=== PATIENT | male | born 1995 | race Caucasian/White ===

== ENCOUNTER 2016-07-21 11:41 | Emergency (ER) | payer OTHER ==
[~2016-07-21] VITALS: Ht 182.9 cm; Wt 68.7 kg
[~2016-07-21 11:41] MED LIST: DEXT1LIQ36 PO; PENICILLIN PO
[2016-07-21 11:42] VITALS: TEMP 36.6; Ht 182.9 cm; Wt 68.7 kg
[2016-07-21] MEDS ORDERED: KETOROLAC TROMETHAMINE 30 MG/ML VIAL IV STA (12:11)
[2016-07-21] MEDS ORDERED: DEXAMETHASONE SOD INJ 10 MG/ML VIAL IV ONE (12:15)
[2016-07-21] MEDS ORDERED: ACETAMINOPHEN IV 100 ML IV ONE (12:15)
[2016-07-21] MEDS ORDERED: SODIUM CHLORIDE 0.9% 1000ML 1,000 ML IV ONE (12:15)
[2016-07-21 12:34] LABS: HEMATOCRIT 43.1 % (42-52); MEAN CELL VOLUME 88.5 fL (80-100); MEAN CORPUSCULAR HEMOGLOBIN 30.6 pg (25-34); MEAN CORPUSCULAR HGB CONC 34.6 g/dl (32-36); MEAN PLATELET VOLUME 11.5 fL (7.4-10.4); PLATELET COUNT 110 K/uL (130-400); RED BLOOD COUNT 4.87 M/uL (4.7-6.1); WHITE BLOOD COUNT 16.28 K/uL (4.8-10.8)
[2016-07-21 12:47] LABS: BUN/CREATININE RATIO 9.1 (10-20); CALCIUM 8.8 mg/dl (8.5-10.1); CREATININE 1.2 mg/dl (0.60-1.40); POTASSIUM 3.6 mmol/L (3.5-5.1)
[2016-07-21 12:50] LABS: ALB/GLOB RATIO 0.9 (0.9-2)
[2016-07-21 12:58] LABS: COMPLETE YES; LYMPH ABS # 1.14 K/uL (1.2-3.4); NEUTROPHILS % 42.6 %; VARIANT LYM ABS # 7.51 K/uL; VARIANT LYMPHOCYTE % 46.1 %
[2016-07-21] MEDS ORDERED: OXYC1TAB3 PO (13:44)
[2016-07-21 14:29] VITALS: BP 116/56; PULSE 79; O2SAT 97
--- NOTE | 2016-07-21 16:36 | EMERGENCY ROOM VISIT NOTE ---
History First contact with patient: 11:51 Chief Complaint: ILLNESS Stated Complaint: NOT EATING/DRINKING, SORETHROAT DX: MONO X 2 DAYS History of Present Illness The patient is a 20 year old male who presents to the Emergency Room with complaints of sore throat symptoms over the past week. The patient states that he was diagnosed with infectious mononucleosis at [facility] 2 days ago. He states that he had blood work and a strep test that was reportedly negative. The patient states his throat pain is making it difficult for him to eat or drink. The patient has not had severe fever or chills. No chest pain, chest tightness, shortness of breath, or abdominal pain. He spoke to his parents today, who recommended he come to the ER for evaluation. The patient is considered otherwise usually healthy and is not taking medication on a regular basis. Review of Systems More than 10 systems were reviewed and otherwise negative with the exception of history of present illness. Past Medical/Surgical History Medical Problems: (1) Asthma (2) Vasovagal syncope Family History Cancer FH: HTN (hypertension) Social History Smoking Status: Never Smoker Housing Status: lives with roommate Occupation Status: [employer] student Current/Historical Medications Scheduled Oxycodone Immediate Rel Tab (Roxicodone Ir), 5 MG PO Q6 Allergies Coded Allergies: No Known Allergies (Unverified , 03/13/16) Physical Exam Vital Signs Date Time Temp Pulse Resp B/P Pulse Ox O2 Delivery O2 Flow Rate FiO2 07/21/16 14:29 79 15 116/56 97 07/21/16 12:38 79 15 116/56 97 Room Air 07/21/16 11:42 36.6 90 20 103/63 96 Room Air Pain Rating (0-10): 0 Physical Exam VITALS: Vitals are noted on the nurse's note and reviewed by myself. Vital signs stable. GENERAL: Well-developed, well-nourished, white male, who is in no acute distress and resting comfortably. Patient is cooperative with the examination. HEAD: Normocephalic atraumatic. MOUTH: Mucous membranes moist. Tonsils are 1+ enlarged and erythematous. There is no evidence of peritonsillar abscess. No ludwigs. Mild x-rays are appreciated on the left tonsils. NECK: Supple without nuchal rigidity. No lymphadenopathy. No thyromegaly. Cervical spine is nontender. HEART: Regular rate and rhythm without murmurs gallops or rubs. LUNGS: Clear to auscultation bilaterally without wheezes, rales or rhonchi. No retractions or accessory muscle use. ABDOMEN: Positive normal bowel sounds x 4. Soft, nontender, without masses or organomegaly. No guarding or rebound tenderness. MUSCULOSKELETAL: No muscle atrophy, erythema, or edema noted. Full range of motion without joint tenderness in all extremities. Medical Decision & Procedures Laboratory Results 07/21/16 12:20 Red Blood Count 4.87, Mean Corpuscular Volume 88.5, Mean Corpuscular Hemoglobin 30.6, Mean Corpuscular Hemoglobin Concent 34.6, Mean Platelet Volume 11.5 07/21/16 12:20 Test 07/21/16 12:20 White Blood Count 16.28 K/uL (4.8-10.8) Red Blood Count 4.87 M/uL (4.7-6.1) Hemoglobin 14.9 g/dL (14.0-18.0) Hematocrit 43.1 % (42-52) Mean Corpuscular Volume 88.5 fL (80-100) Mean Corpuscular Hemoglobin 30.6 pg (25-34) Mean Corpuscular Hemoglobin Concent 34.6 g/dl (32-36) Platelet Count 110 K/uL (130-400) Mean Platelet Volume 11.5 fL (7.4-10.4) RDW Standard Deviation 40.2 fL (36.4-46.3) RDW Coefficient of Variation 12.6 % (11.5-14.5) Neutrophils % (Manual) 42.6 % Lymphocytes % (Manual) 7.0 % Variant Lymphocytes % (manual) 46.1 % Monocytes % (Manual) 4.3 % Neutrophils # (Manual) 6.94 K/uL (1.4-6.5) Total Absolute Neutrophils 6.94 K/uL (1.4-6.5) Lymphocytes # (Manual) 1.14 K/uL (1.2-3.4) Absolute Variant Lymphocytes 7.51 K/uL Total Absolute Lymphocytes 8.64 K/uL (1.2-3.4) Monocytes # (Manual) 0.70 K/uL (0.11-0.59) Red Blood Cell Morphology Unremarkable Anion Gap 7.0 mmol/L (3-11) Est Creatinine Clear Calc Drug Dose 96.2 ml/min Estimated GFR () 101.0 Estimated GFR (Non- 87.1 BUN/Creatinine Ratio 9.1 (10-20) Calcium Level 8.8 mg/dl (8.5-10.1) Total Bilirubin 0.6 mg/dl (0.2-1) Aspartate Amino Transf (AST/SGOT) 54 U/L (15-37) Alanine Aminotransferase (ALT/SGPT) 86 U/L (12-78) Alkaline Phosphatase 25 U/L (45-117) Total Protein 7.6 gm/dl (6.4-8.2) Albumin 3.7 gm/dl (3.4-5.0) Globulin 3.9 gm/dl (2.5-4.0) Albumin/Globulin Ratio 0.9 (0.9-2) Medications Administered Medications (Trade) Dose Ordered Sig/Pooja Route Start Time Stop Time Status Last Admin Dose Admin Sodium Chloride (Nss 1000ml) 1,000 ml @ 999 mls/hr Q1H1M ONCE IV 07/21/16 12:15 07/21/16 13:15 DC 07/21/16 12:32 999 MLS/HR Ketorolac Tromethamine (Toradol Inj) 30 mg NOW STAT IV 07/21/16 12:11 07/21/16 12:13 DC 07/21/16 12:30 30 MG Dexamethasone Sodium Phosphate 10 mg 10 mg NOW ONCE IV 07/21/16 12:15 07/21/16 12:16 DC 07/21/16 12:29 10 MG Acetaminophen (Ofirmev Iv) 100 ml @ 400 mls/hr NOW ONCE IV 07/21/16 12:15 07/21/16 12:29 DC 07/21/16 12:31 400 MLS/HR ED Course Physical exam and history were performed. Nursing notes and EMR were reviewed. Patient appears to have a sore throat likely from infectious mononucleosis. He is not eating or drinking well over the past 2 days due to his symptoms. He does not have a peritonsillar abscess on examination. IV access was established and labs were obtained. The patient was hydrated and medicated as above. The patient's blood work does show an elevated white blood cell count of 16,000 which was expected. He also has a slight increase in his transaminases, again likely consistent with mono. The patient does not have other significant findings. He was monitored for greater than 2 hours here in the department and had considerable improvement of his symptoms after the above medications. Overall the patient appears well for discharge home. He will be given instructions to use [id number] analgesics and encourage fluids. I will give him a short course of pain medication. The patient was invited back to the emergency department anytime with new, worsening, or concerning symptoms. He voiced understanding of this plan and rated his discomfort 2/10 at the time of departure. The chart was completed utilizing [employer] Speech Voice Recognition Software. Grammatical errors, random word insertions, pronoun errors, and incomplete sentences are an occasional consequence of this system due to software limitations, ambient noise, and hardware issues. Any formal questions or concerns about the content, text, or information contained within the body of this dictation should be directly addressed to the provider for clarification. . Medical Decision Differential diagnosis: Etiologies such as viral syndrome, tonsillitis, streptococcal pharyngitis, mononucleosis, peritonsillar abscess, retropharyngeal abscess, otitis, pneumonia , influenza, as well as others were entertained. Impression Primary Impression: Infectious mononucleosis with hepatitis Departure Information Dispostion Home / Self-Care Condition GOOD Prescriptions Oxycodone Immediate Rel Tab (ROXICODONE IR) 5 Mg Tab 5 MG PO Q6 for Pain, #10 TAB Prov: Surendra Rodrigues PA-C 07/21/16 Forms HOME CARE DOCUMENTATION FORM, IMPORTANT VISIT INFORMATION Patient Instructions My [facility] Additional Instructions You were seen and evaluated today on an emergency basis only. This is not a substitute for, or an effort to provide, complete comprehensive medical care. It is not possible to recognize and treat all injuries or illnesses in a single emergency department visit. For this reason it is recommended that you followup with [facility] next week for ongoing evaluation. You have mild irritation of the liver. This is likely from the [place] infection. Your liver enzymes will need rechecked by your primary care physician or [facility] in one or two weeks. Oxycodone (OxyIR) 5mg: Take ONE pill every SIX hours for breakthrough pain. Avoid alcohol, operating machinery or dangerous equipment, working on ladders or roofs, DRIVING, or situations where being under the influence may be dangerous. It is recommended to use an [id number] stool softener such as Colace, 100mg twice daily while taking this medication to avoid constipation. For baseline pain relief you may alternate ibuprofen and acetaminophen every 4 hours for pain control. Take 600 mg ibuprofen (Advil) and then 4 hours later take 1000 mg acetaminophen (Tylenol). Do not take more than 3000 mg acetaminophen in a single day. Drink plenty fluids and remain well hydrated. You are welcome to return to the emergency department anytime with new, worsening, or concerning symptoms.
== END 2016-07-21 14:31 | disposition home or self-care (01) ==
LOC: C.EDB 11:43 → C.EDA 14:31
DX: B27.90 Infectious mononucleosis, unspecified without complication (principal); K75.9 Inflammatory liver disease, unspecified; J45.909 Unspecified asthma, uncomplicated; Z80.9 Family history of malignant neoplasm, unspecified; Z82.49 Family history of ischemic heart disease and other diseases of the circulatory system

== ENCOUNTER 2016-07-22 23:38 | Emergency (ER) | payer OTHER ==
[~2016-07-22] VITALS: Ht 182.9 cm; Wt 68.6 kg
[~2016-07-22 23:38] MED LIST changes: +OXYC1TAB3 PO
[2016-07-22 23:45] VITALS: Ht 182.9 cm; Wt 68.6 kg
[2016-07-23 00:19] LABS: MEAN CELL VOLUME 88.6 fL (80-100); MEAN CORPUSCULAR HGB CONC 33.8 g/dl (32-36); MEAN PLATELET VOLUME 11.6 fL (7.4-10.4); PLATELET COUNT 125 K/uL (130-400); RED BLOOD COUNT 4.74 M/uL (4.7-6.1); WHITE BLOOD COUNT 18.11 K/uL (4.8-10.8)
[2016-07-23 00:37] LABS: BUN/CREATININE RATIO 7.1 (10-20); CALCIUM 8.7 mg/dl (8.5-10.1); CREATININE 1.3 mg/dl (0.60-1.40); POTASSIUM 3.5 mmol/L (3.5-5.1)
[2016-07-23] MEDS ORDERED: SODIUM CHLORIDE 0.9% 1000ML 2,000 ML IV STA (00:59)
[2016-07-23] MEDS ORDERED: KETOROLAC TROMETHAMINE 30 MG/ML VIAL IV STA (00:59)
[2016-07-23] MEDS ORDERED: ONDANSETRON INJ 2 MG/ML 2 ML VIAL IV STA (00:59)
[2016-07-23] MEDS ORDERED: MAGIC SWIZZLE PO ONE (01:00)
[2016-07-23] MEDS ORDERED: LIDOCAINE HCL 2% VISCOUS SOLN 1.25 ML, DiphenhydrAMINE HCL SYRUP 3.125 MG, ALUMINUM/MAG... MT STA ×4 (01:03)
[2016-07-23 01:16] LABS: BASO ABS # 0.16 K/uL (0-0.2); BASOPHIL % 0.9 % (0-2); COMPLETE YES; LYMPH ABS # 2.61 K/uL (1.2-3.4); LYMPHOCYTE % 14.4 %; NEUTROPHILS % 30.6 %; VARIANT LYMPHOCYTE % 54.1 %
[2016-07-23] MEDS ORDERED: MBXC PO (02:20)
[2016-07-23] MEDS ORDERED: METHYLPREDNISOLONE 125 MG VIAL IV STA (02:20)
[2016-07-23 02:37] VITALS: BP 105/42; PULSE 94; TEMP 37.8; O2SAT 96
--- NOTE | 2016-07-23 03:35 | EMERGENCY ROOM VISIT NOTE ---
History Report prepared by Radha: Zen Blandon Under the Supervision of: Dr. Eduar Varela D.O. First contact with patient: 23:49 Chief Complaint: FEVER Stated Complaint: MONO, FEVER, PASSING OUT History of Present Illness The patient is a 20 year old male who presents to the Emergency Room with complaints of persistent fever beginning yesterday. He notes he was diagnosed with mono at [facility] 3 days ago. His temperature have been around 102-103. He took 2 Tylenol tables about 10 hours ago which did not help, and has been taking Ibuprofen irregularly. The patient also reports passing out about 5 hours ago. He states he was in his room and felt hot. His legs began to buckle and he fell to the ground where he woke up. He notes this only occurred once. The patient admits to a history of vasovagal syncope, but notes that the episode was today was sudden and that his episodes with his vasovagal episodes are more gradual. He notes that he felt dizzy other times throughout the day and had to sit down. The patient admits to having a sore throat and pain with swallowing, muscle aches, ear discomfort, sinus congestions, and vomiting. He last vomited 4 hours ago. The patient denies having any coughing up blood, urinary symptoms, or swelling of his legs. He also denies any history of heart disease, but admits to a history of heart disease. He has not had any sick contact recently. Previous echo and Holter monitor for vasovagal syncope was an unremarkable workup. Source of History: patient Onset: yesterday Position: other (global) Symptom Intensity: 102-103 Quality: other (fever) Timing: other (persistent) Associated Symptoms: + LOC, + sorethroat, + vomiting, No urinary symptoms Note: Patient also admits to having ear discomfort, muscle aches, and pain with swallowing. Review of Systems See HPI for pertinent positives & negatives. A total of 10 systems reviewed and were otherwise negative. Past Medical & Surgical Medical Problems: (1) Asthma (2) Vasovagal syncope Family History Cancer FH: HTN (hypertension) Social History Smoking Status: Never Smoker Housing Status: lives with roommate Occupation Status: [employer] student Current/Historical Medications Scheduled Magic Swizzle (Magic Swizzle - SUCRALFA/ALUM/MAG/DIPHEN/LIDO), 3-4 TSP PO ACHS Oxycodone Immediate Rel Tab (Roxicodone Ir), 5 MG PO Q6 Allergies Coded Allergies: No Known Allergies (Unverified , 07/22/16) Physical Exam Vital Signs Date Time Temp Pulse Resp B/P Pulse Ox O2 Delivery O2 Flow Rate FiO2 07/23/16 02:37 37.8 94 18 105/42 96 07/23/16 02:09 37.8 94 18 105/42 96 Room Air 07/23/16 01:14 84 22 121/51 96 Room Air 07/23/16 00:20 93 07/22/16 23:45 38.0 88 18 105/47 95 Room Air Physical Exam GENERAL: Sitting up in bed, alert, well appearing, well nourished, no distress, non-toxic HEAD: Normocephalic/atraumatic EYE EXAM: normal conjunctiva, PERRL and EOM's intact OROPHARYNX: no exudate, no erythema, lips, buccal mucosa, and tongue normal and mucous membranes are moist NECK: supple, no nuchal rigidity, no adenopathy, no midline tenderness with FROM LUNGS: Clear to auscultation. Normal chest wall mechanics HEART: Tachycardic. ABDOMEN: abdomen soft, non-tender, normo-active bowel sounds, no masses, no rebound or guarding. BACK: Back is symmetrical on inspection and there is no deformity, no midline tenderness, no CVA tenderness. SKIN: no rashes and no bruising UPPER EXTREMITIES: upper extremities are grossly normal. LOWER EXTREMITIES: No pitting edema. NEURO EXAM: Normal sensorium, cranial nerves II-XII grossly intact, normal speech, no gross weakness of arms, no gross weakness of legs. Gross sensation intact. Medical Decision & Procedures ER Provider Diagnostic Interpretation: Radiology results as stated below per my review and the radiologist's interpretation: CHEST X-RAY per my review: Portable AP Upright One View No acute infiltrate or pneumothorax. Normal cardiac silhouette. Laboratory Results 07/22/16 23:55 Red Blood Count 4.74, Mean Corpuscular Volume 88.6, Mean Corpuscular Hemoglobin 30.0, Mean Corpuscular Hemoglobin Concent 33.8, Mean Platelet Volume 11.6 07/22/16 23:55 Test 07/22/16 23:55 White Blood Count 18.11 K/uL (4.8-10.8) Red Blood Count 4.74 M/uL (4.7-6.1) Hemoglobin 14.2 g/dL (14.0-18.0) Hematocrit 42.0 % (42-52) Mean Corpuscular Volume 88.6 fL (80-100) Mean Corpuscular Hemoglobin 30.0 pg (25-34) Mean Corpuscular Hemoglobin Concent 33.8 g/dl (32-36) Platelet Count 125 K/uL (130-400) Mean Platelet Volume 11.6 fL (7.4-10.4) RDW Standard Deviation 41.1 fL (36.4-46.3) RDW Coefficient of Variation 12.7 % (11.5-14.5) Nucleated RBC Absolute Count (auto) 0.07 K/uL (0-0) Neutrophils % (Manual) 30.6 % Lymphocytes % (Manual) 14.4 % Variant Lymphocytes % (manual) 54.1 % Basophils % (Manual) 0.9 % (0-2) Nucleated Red Blood Cells % 0.4 % Neutrophils # (Manual) 5.54 K/uL (1.4-6.5) Total Absolute Neutrophils 5.54 K/uL (1.4-6.5) Lymphocytes # (Manual) 2.61 K/uL (1.2-3.4) Absolute Variant Lymphocytes 9.80 K/uL Total Absolute Lymphocytes 12.41 K/uL (1.2-3.4) Basophils # (Manual) 0.16 K/uL (0-0.2) Anion Gap 8.0 mmol/L (3-11) Est Creatinine Clear Calc Drug Dose 88.7 ml/min Estimated GFR () 91.7 Estimated GFR (Non- 79.1 BUN/Creatinine Ratio 7.1 (10-20) Calcium Level 8.7 mg/dl (8.5-10.1) Total Bilirubin 0.5 mg/dl (0.2-1) Direct Bilirubin 0.1 mg/dl (0-0.2) Aspartate Amino Transf (AST/SGOT) 44 U/L (15-37) Alanine Aminotransferase (ALT/SGPT) 78 U/L (12-78) Alkaline Phosphatase 20 U/L (45-117) Total Protein 7.5 gm/dl (6.4-8.2) Albumin 3.6 gm/dl (3.4-5.0) Laboratory results per my review. Medications Administered Medications (Trade) Dose Ordered Sig/Pooja Route Start Time Stop Time Status Last Admin Dose Admin Sodium Chloride (Nss 1000ml) 2,000 ml @ 999 mls/hr Q2H1M STAT IV 07/23/16 00:59 07/23/16 02:59 DC 07/23/16 01:08 999 MLS/HR Ondansetron HCl (Zofran Inj) 4 mg NOW STAT IV 07/23/16 00:59 07/23/16 01:00 DC 07/23/16 01:08 4 MG Ketorolac Tromethamine (Toradol Inj) 30 mg NOW STAT IV 07/23/16 00:59 07/23/16 01:00 DC 07/23/16 01:09 30 MG Methylprednisolone Sodium Succinate (Solu-Medrol IV) 125 mg NOW STAT IV 07/23/16 02:20 07/23/16 02:21 DC 07/23/16 02:27 125 MG ECG Indication: other (fever) Rate (beats per minute): 78 Findings: no ectopy, other (normal axis, normal interval) ED Course ED COURSE: Vital signs were reviewed and showed tachycardic and febrile. The patients medical record was reviewed The above diagnostic studies were performed and reviewed. ED treatments and interventions as stated above. 2354: The patient was evaluated in room C7. A complete history and physical examination was performed. 0125: I updated the patient. 0135: I spoke with the patient's father on the phone to update him. 0220: Ordered Solu-Medrol IV 125 mg IV. 0230: Upon reevaluation, the patient is doing well.I discussed my findings with the patient and he understands and agrees with the treatment plan. Based on the patients age, coexisting illnesses, exam and lab findings the decision to treat as an outpatient was made. The patient remained stable while under my care. The patient appeared well at the time of discharge. Medical Decision Differential diagnosis: Etiologies such as viral syndrome, otitis, pharyngitis, pneumonia, influenza, meningitis, urinary tract infection, sepsis, bacteremia, as well as others were entertained. Patient is a 20-year-old male who presents the ER with a diagnosis of mono [facility] for fevers associated with a severe sore throat and syncope. This gentleman has extensive workup for vasovagal syncope which includes a Holter monitor and echo in the past year which were unremarkable. Patient notes that he became diaphoretic warm and very lightheaded. He then passed out. I do favor this is likely consistent with vasovagal syncope likely exacerbated by dehydration from the mono. Labs show an increasing leukocytosis. BMP along with LFTs, and bilirubin were unremarkable. He has no urinary complaints. Chest x-ray was unremarkable and EKG shows no signs of HCOM or Brugada. Intervals including QT are normal. This was not exertional. Patient is given 2 L normal saline along with Toradol and magic swizzle. He felt slightly better. I discussed the findings with his father who is a physician and he agreed with the workup. Patient had no complaints from the fall. He was neurologically intact. He was given steroids and discharged to follow-up with S tomorrow. Discussed with Pt concerning signs and symptoms to watch out for. Pt was instructed to follow up with their PCP and discussed with the patient their option to return to the ED at anytime for persistent or worsening symptoms. The appropriate anticipatory guidance and out-patient management, including indications for return to the emergency department, were explained at length to the patient and understood. Impression Primary Impression: Mononucleosis Additional Impressions: Pharyngitis Fever Scribe Attestation The scribe's documentation has been prepared under my direction and personally reviewed by me in its entirety. I confirm that the note above accurately reflects all work, treatment, procedures, and medical decision making performed by me. Departure Information Dispostion Home / Self-Care Prescriptions Magic Swizzle (Magic Swizzle - SUCRALFA/ALUM/MAG/DIPHEN/LIDO) 240 Ml Susp 3-4 TSP PO ACHS, #240 ML 100ml Sucralfate 50ml Maalox 50ml Diphenhydramine 40ml 2% Aq. Lidocaine Swish and Swallow Prov: Eduar Varela, DO 07/23/16 Referrals [facility] (PCP) Patient Instructions ED Pharyngitis Viral, Mononucleosis, My [facility] Additional Instructions Please follow up with your primary care doctor or if you are a student [facility] services with in the next 24 hours. Any worsening of your symptoms, please return to the ED immediately. This includes passing out, chest pain, weakness of the arms or legs, severe neck pain, or any other concerning signs or symptoms from your standpoint. Patient Motrin Tylenol as needed for pain. Problem Qualifiers Additional Impressions: Pharyngitis Pharyngitis/tonsillitis etiology: unspecified etiology Qualified Codes: J02.9 - Acute pharyngitis, unspecified Fever Fever type: unspecified Qualified Codes: R50.9 - Fever, unspecified
--- NOTE | 2016-07-23 06:49 | DIAGNOSTIC IMAGING REPORT ---
CHEST ONE VIEW PORTABLE CLINICAL HISTORY: syncope FEVER COMPARISON STUDY: No previous studies for comparison. FINDINGS: The cardiac and mediastinal contours are normal. There is no evidence of focal pulmonary consolidation. There is no evidence of failure. No pleural effusions are visualized.[ IMPRESSION: No active disease in the chest. Electronically signed by: Jack Yuen M.D. 07/23/2016 6:46 AM Dictated Date/Time: 07/23/2016 6:46 AM
== END 2016-07-23 02:37 | disposition home or self-care (01) ==
LOC: C.EDB 23:38 → C.EDC 07-23 02:37
DX: B27.90 Infectious mononucleosis, unspecified without complication (principal); J02.9 Acute pharyngitis, unspecified; R50.9 Fever, unspecified; R55 Syncope and collapse; J45.909 Unspecified asthma, uncomplicated; Z80.9 Family history of malignant neoplasm, unspecified; Z82.49 Family history of ischemic heart disease and other diseases of the circulatory system